=== PATIENT | male | born 1955 | race Caucasian/White ===

== ENCOUNTER → 2024-09-10 18:26 | Outpatient (REF) | payer BC, SELFPAY | LOC: RAD 18:26 | PROVIDERS: ATTENDING PHYSICIAN Nurse Practitioner Family | DX: R05.1 Acute cough (principal) | CPT/HCPCS: 71046 ==

== ENCOUNTER 2025-05-22 06:27 | Day surgery (SDC) | payer BC, SELFPAY | END 2025-05-22 09:04 | disposition home or self-care (01) | LOC: GI 06:27 | PROVIDERS: ATTENDING PHYSICIAN Internal Medicine Gastroenterology | DX: Z12.11 Encounter for screening for malignant neoplasm of colon (principal); K64.8 Other hemorrhoids; K57.30 Diverticulosis of large intestine without perforation or abscess without bleeding; D12.0 Benign neoplasm of cecum; K63.5 Polyp of colon | CPT/HCPCS: 45385; 88305 ==